=== PATIENT | female | born 1975 | race Hispanic/Latino ===

== ENCOUNTER 2025-01-05 07:31 | Day surgery (SDC) | payer OTHER ==
[2025-01-05] VITALS (11 sets, daily range): BP systolic 87–109; BP diastolic 39–58; PULSE 54–72; RESP 15–18; TEMP 97.1–97.6
[~2025-01-05] VITALS: Ht 154.9 cm; Wt 67.1 kg
[~2025-01-05 07:31] MED LIST: DICY20TA3 PO; FAMO-136 PO; LOSA50TA64 PO
[2025-01-05] MEDS: 0.9%NACL 1000ML 1,000 ML IV ONE (08:43)
[2025-01-05] MEDS ORDERED: proPOFol 10 MG/ML 20ML VIAL IV ONE (09:15)
[2025-01-05] MEDS ORDERED: MIDAZOLAM HCL 1 MG/ML 2ML VIAL ONE (09:15)
[2025-01-05] MEDS ORDERED: LIDOCAINE PF 100MG/5ML (2%) SYRINGE 5ML ONE (09:15)
--- NOTE | 2025-01-05 11:00 | NUR ---
Full and complete Discharge Instructions given to Patient and Family both verbally and in writing.. All questions answered.Voiced understanding to GI procedure precautions and Follow Up. PIV removed with catheter tip intact. Denies c/o pain or discomfort. W/C to POV with Family to home.
== END 2025-01-05 10:55 | disposition home or self-care (01) ==
LOC: ENDO 07:31 → DAH 07:31 → ENDO 10:55
PROVIDERS: ATTEND Surgery
DX: R12 Heartburn (principal); K44.9 Diaphragmatic hernia without obstruction or gangrene; K22.89 Other specified disease of esophagus; K31.89 Other diseases of stomach and duodenum; I10 Essential (primary) hypertension; F41.9 Anxiety disorder, unspecified; E78.00 Pure hypercholesterolemia, unspecified; E66.9 Obesity, unspecified; Z68.28 Body mass index [BMI] 28.0-28.9, adult; Z90.49 Acquired absence of other specified parts of digestive tract; Z88.8 Allergy status to other drugs, medicaments and biological substances; Z98.890 Other specified postprocedural states; Z79.899 Other long term (current) drug therapy
CPT/HCPCS: 43239; J7030 ×2; J2003; J2250; J2704; A4620; A4215 ×2; A4223; A4657; A4222; A4221; A4663; A4606; J3490